=== PATIENT | female | born 1950 | race Caucasian/White ===

== ENCOUNTER 2022-12-18 11:50 | Emergency (ER) | payer OTHER ==
[2022-12-18] MEDS ORDERED: FLUORESCEIN SODIUM 1 MG/WRAP ONE (12:18)
[2022-12-18] MEDS ORDERED: TETRACAINE HCL 0.5% 4ML OPTH ONE (12:18)
--- NOTE | 2022-12-18 12:32 | EDPHYS ---
Physician Documentation [facility] Name: Lizet Vaz Age: 72 yrs Sex: Female : 1950 Arrival Date: 12/18/2022 Time: 11:54 Bed 12 Private MD: ED Physician Israel Alexander HPI: 12/18 13:29 This 72 yrs old Female presents to ER via Ambulatory with complaints of Eye Injury. kb 13:29 The patient is experiencing redness, The patient sustained a scratch, to the left eye, kb caused by debris. Onset: The symptoms/episode began/occurred yesterday. Duration: the symptoms are intermittent. Aggravated by nothing. Alleviated by nothing. Associated signs and symptoms: Pertinent positives: None. Patient wears glasses. Severity of symptoms: At their worst the symptoms were mild in the emergency department the symptoms are unchanged. The patient has not experienced similar symptoms in the past. The patient has not recently seen a physician. Historical: - Allergies: 12:09 PENICILLINS; aa5 12:09 Celebrex; aa5 12:09 Erythromycin; aa5 12:09 Clindamycin; aa5 - Home Meds: 12:10 None [Active]; aa5 - PMHx: 12:10 None; aa5 - Immunization history:: Adult Immunizations unknown. - Social history:: Smoking status: Patient denies any tobacco usage or history of. ROS: 13:29 Constitutional: Negative for fever, chills, and weight loss. kb 13:29 Eyes: Positive for redness, of the outer aspect of conjuctiva of left eye. 13:29 All other systems are negative. Exam: 13:29 Constitutional: This is a well developed, well nourished patient who is awake, alert, kb and in no acute distress. Head/Face: Normocephalic, atraumatic. Cardiovascular: Regular rate and rhythm with a normal S1 and S2. No gallops, murmurs, or rubs. No pulse deficits. Respiratory: Respirations even and unlabored. No increased work of breathing. Talking in full sentences Abdomen/GI: Soft, non-tender. No distention Skin: Warm, dry with normal turgor. Normal color. MS/ Extremity: Pulses equal, no cyanosis. Neurovascular intact. Full, normal range of motion. Neuro: Awake and alert, GCS 15, oriented to person, place, time, and situation. Moves all extremities. Normal gait. 13:29 Eyes: Pupils: equal, round, and reactive to light and accomodation, Extraocular movements: intact throughout, Conjunctiva: subconjunctival hemorrhage(s), seen in the left eye, at 7 o'clock, Corneas: are normal, abrasion, is not appreciated, foreign body, is not appreciated, a fluorescein strip employed to appreciate the findings. Vital Signs: 12:08 BP 164 / 83; Pulse 77; Resp 18 S; Temp 98.0(TE); Pulse Ox 99% on R/A; Weight 53.07 kg aa5 (R); Height 5 ft. 2 in. (157.48 cm) (R); 12:08 Body Mass Index 21.40 (53.07 kg, 157.48 cm) aa5 MDM: 12:17 Patient medically screened. kb 13:26 Differential diagnosis: Corneal abrasion of Foreign body in Subconjunctival hemorrhage. kb Data reviewed: vital signs, nurses notes. Counseling: I had a detailed discussion with the patient and/or guardian regarding: the historical points, exam findings, and any diagnostic results supporting the discharge/admit diagnosis, the need for outpatient follow up, a family practitioner, to return to the emergency department if symptoms worsen or persist or if there are any questions or concerns that arise at home. ED course: Patient is a 72-year-old female who was gardening yesterday and a leaf brushed her eyeball. Reports she continued what she was doing, did not have any pain or vision changes but after she was done she looked in the mirror and saw a redness to her left eye. Continues to deny pain, foreign body sensation or vision changes. On exam patient has a subconjunctival hemorrhage to the left eye at 7:00. Fluorescein strip used to do eye exam. No foreign body, abrasion noted. Patient educated to follow-up with ophthalmology. Verbal understanding received.. Administered Medications: No medications were administered Disposition Summary: 12/18/22 12:32 Discharge Ordered Location: Home kb Condition: Stable kb Diagnosis - Subconjunctival hemorrhage kb Followup: kb - With: Emergency Department - When: As needed - Reason: Worsening of condition Followup: kb - With: Private Physician - When: 2 - 3 days - Reason: Recheck today's complaints, Continuance of care, Re-evaluation by your physician Discharge Instructions: - Discharge Summary Sheet kb - Subconjunctival Hemorrhage kb Forms: - Medication Reconciliation Form kb - Thank You Letter kb - Antibiotic Education kb - Prescription Opioid Use kb Signatures: Fatemeh Solis, Jimena Flaherty, RN RN aa5
--- NOTE | 2022-12-18 12:32 | ER ---
Nurse's Notes [facility] Name: Lizet Vaz Age: 72 yrs Sex: Female : 1950 Arrival Date: 12/18/2022 Time: 11:54 Bed 12 Private MD: Diagnosis: Subconjunctival hemorrhage Presentation: 12/18 12:08 Chief complaint: Patient states: "I was planting an oleander plant and it brushed my aa5 left eye". Coronavirus screen: At this time, the client does not indicate any symptoms associated with coronavirus-19. Ebola Screen: Patient denies travel to an Ebola-affected area in the 21 days before illness onset. Initial Sepsis Screen: Does the patient meet any 2 criteria? No. Patient's initial sepsis screen is negative. Does the patient have a suspected source of infection? No. Patient's initial sepsis screen is negative. Risk Assessment: Do you want to hurt yourself or someone else? Patient reports no desire to harm self or others. Onset of symptoms was December 18, 2022. 12:08 Method Of Arrival: Ambulatory aa5 12:08 Acuity: AMRITA 4 aa5 Historical: - Allergies: 12:09 PENICILLINS; aa5 12:09 Celebrex; aa5 12:09 Erythromycin; aa5 12:09 Clindamycin; aa5 - Home Meds: 12:10 None [Active]; aa5 - PMHx: 12:10 None; aa5 - Immunization history:: Adult Immunizations unknown. - Social history:: Smoking status: Patient denies any tobacco usage or history of. Assessment: 12:40 Reassessment: Patient is alert, oriented x 3, equal unlabored respirations, skin aa5 warm/dry/pink. Vital Signs: 12:08 BP 164 / 83; Pulse 77; Resp 18 S; Temp 98.0(TE); Pulse Ox 99% on R/A; Weight 53.07 kg aa5 (R); Height 5 ft. 2 in. (157.48 cm) (R); 12:08 Body Mass Index 21.40 (53.07 kg, 157.48 cm) aa5 ED Course: 11:54 Patient arrived in ED. mr 12:08 Arm band placed on. aa5 12:09 Triage completed. aa5 12:14 Fatemeh Solis FNP-C is [facility]. kb 12:14 Israel Alexander MD is Attending Physician. kb 12:40 No provider procedures requiring assistance completed. Patient did not have IV access aa5 during this emergency room visit. Administered Medications: No medications were administered Outcome: 12:32 Discharge ordered by . kb 12:40 Discharged to home ambulatory. aa5 12:40 Condition: stable 12:40 Discharge instructions given to patient, significant other, Instructed on discharge instructions, follow up and referral plans. Demonstrated understanding of instructions, follow-up care. 12:43 Patient left the ED. aa5 Signatures: Fatemeh Solis FNP-C FNP-Ckb Rivera, Mary mr CostaJimena RN RN aa5
[2022-12-18 12:46] VITALS: BP 164/83; TEMP 98; O2SAT 99
== END 2022-12-18 12:43 | disposition home or self-care (01) ==
LOC: ER 11:50
DX: H11.32 Conjunctival hemorrhage, left eye (principal)
CPT/HCPCS: 99281

== ENCOUNTER 2023-05-17 09:10 | Inpatient (IN) | payer OTHER ==
[2023-05-17 10:03] LABS: Absolute Lymphocytes (CBC) 1.3 K/uL (0.7-4.9); Lymphocytes % 6.8 % (15.3-44.8); MCV 81.8 fL (80-100); MPV 6.9 fL (7.6-11.3); RBC Red Blood Cell Count 4.64 M/uL (3.86-4.86)
[2023-05-17 10:21] LABS: Bilirubin Total 0.4 mg/dL (0.2-1.0); Potassium 3.7 mEq/L (3.5-5.1); Protein, Total 7.6 g/dL (6.4-8.2)
--- NOTE | 2023-05-17 11:06 | RAD REPORT ---
EXAM DESCRIPTION: CTAbdomen Pelvis W Contrast - 05/17/2023 10:42 am CLINICAL HISTORY: ABD PAIN COMPARISON: No comparisons TECHNIQUE: CT of the abdomen and pelvis was performed. All CT scans are performed using dose optimization technique as appropriate and may include automated exposure control or mA/KV adjustment according to patient size. FINDINGS: Lower chest: Circumferential thickened distal esophagus. This suggests esophagitis. Liver: Several low-density liver lesions are noted. The largest is located near the love hepatis michelle sured 1.8 cm. A lesion in the inferior aspect of right hepatic lobe measures 13 millimeters. Other sm all are lesions are seen. Biliary: No biliary ductal dilatation. Stomach: No significant focal abnormality. Duodenum: No significant focal abnormality. Pancreas: No significant abnormality. Spleen: No significant abnormality. Adrenal: No suspicious lesions. Kidney/ureter: No hydronephrosis. No renal calculi. Retroperitoneum: No retroperitoneal adenopathy. Vascular: No aneurysm. Bowel: Pronounced inflammatory changes in the right lower quadrant. It is uncertain if this involves the ascending colon or is adjacent to the ascending colon. Low-density collection measuring 5.4 x 2.9 cm is noted. The base have a normal appendix is identified . The tip is not seen . Peritoneum: No ascites or free air. Bladder: Grossly unremarkable. Reproductive: No adnexal masses. Bones: No acute fracture. Other: n/a IMPRESSION: 1. Inflammatory changes and soft tissue in the right lower quadrant. It is uncertain if this could represent rupture appendicits with abscess versus a mass. A portion of a normal appendix i s identified and directed towards the inflammatory process. Recommend surgical consultation. 2. Liver lesions that could represent metastatic disease depending on the source of impression #1. He patic protocol MRI could assess.
[2023-05-17 11:18] LABS: Urine Bacteria <20 /HPF (<20); Urine Bilirubin NEGATIVE (Negative); Urine Blood Negative (Negative); Urine Clarity Clear (Clear); Urine Color Light-Yellow (Yellow); Urine Glucose NEGATIVE (Negative); Urine Protein NEGATIVE (Negative); Urine RBC <5 /HPF (None Seen); Urine Urobilinogen Normal (Normal); Urine pH 5.5 (5.0-7.0)
[2023-05-17] MEDS ORDERED: CIPROFLOXACIN 400mg IV 400 MG/200 ML BAG IV ONE (11:55)
[2023-05-17] MEDS ORDERED: METRONIDAZOLE 500mg IVPB 500 MG/100 ML BAG IV ONE (11:55)
--- NOTE | 2023-05-17 12:48 | EDPHYS ---
Physician Documentation [facility] Name: Lizet Vaz Age: 73 yrs Sex: Female : 1950 Arrival Date: 05/17/2023 Time: 09:10 Bed 15 Private MD: ED Physician Esau Samuels HPI: 05/17 09:30 This 73 yrs old Female presents to ER via Ambulatory with complaints of Abdominal pm1 Swelling, Abdominal Pain, Fever. 09:30 The patient presents with abdominal pain right lower quadrant. Onset: The pm1 symptoms/episode began/occurred 1.5 week(s) ago. The symptoms do not radiate. Associated signs and symptoms: Pertinent positives: fever, decreased appetite for 3 days at onset of abdominal pain, Pertinent negatives: constipation, diarrhea. The symptoms are described as constant, dull, 2-3/10 at the moment. Modifying factors: The symptoms are alleviated by nothing, the symptoms are aggravated by touching the area. Severity of pain: in the emergency department the pain has improved is a 3 / 10. The patient has not experienced similar symptoms in the past. The patient has not recently seen a physician, the patient's primary care provider is Dr. Cottrell. 73-year-old female presents to the ER with complaints of abdominal pain and fever that started about 1.5 weeks ago. Patient reports she had severe pain with decreased appetite for about 3 days, then her improved significantly to its current level 2 - 3/10, but she noticed that she has had continued fever every day along with some abdominal swelling. Historical: - Allergies: 09:42 Celebrex; ss 09:42 Clindamycin; ss 09:42 Erythromycin; ss 09:42 PENICILLINS; ss - Immunization history:: Client reports receiving the 2nd dose of the Covid vaccine. - Social history:: Smoking status: Patient denies any tobacco usage or history of. ROS: 09:30 Cardiovascular: Negative for chest pain, palpitations, and edema, Respiratory: Negative pm1 for shortness of breath, cough, wheezing, and pleuritic chest pain. 09:30 Back: Negative for injury and pain, : Negative for injury, bleeding, discharge, and swelling, MS/Extremity: Negative for injury and deformity, Skin: Negative for injury, rash, and discoloration, Neuro: Negative for headache, weakness, numbness, tingling, and seizure. 09:30 Constitutional: Positive for fever. 09:30 Abdomen/GI: Positive for abdominal pain, of the right lower quadrant, Negative for nausea, vomiting, diarrhea, constipation. 09:30 All other systems are negative. Exam: 09:30 Constitutional: This is a well developed, well nourished patient who is awake, alert, pm1 and in no acute distress. Head/Face: Normocephalic, atraumatic. 09:30 MS/ Extremity: Pulses equal, no cyanosis. Neurovascular intact. Full, normal range of motion. 09:30 Cardiovascular: Exam negative for acute changes, Rate: normal, Rhythm: regular, Pulses: no pulse deficits are appreciated, Heart sounds: normal, normal S1and S2. 09:30 Respiratory: Exam negative for acute changes, respiratory distress, shortness of breath, Breath sounds: are clear throughout. 09:30 Abdomen/GI: Inspection: abdomen appears normal, Bowel sounds: normal, in all quadrants, Palpation: soft, in all quadrants, moderate abdominal tenderness, in the right lower quadrant. 09:30 Back: pain, that is mild, of the right low back. 09:30 Neuro: Exam negative for acute changes, Orientation: is normal, Mentation: is normal, Motor: moves all fours. Vital Signs: 09:41 BP 117 / 72; Pulse 90; Resp 16; Temp 99(O); Pulse Ox 99% on R/A; Weight 53.07 kg; ss Height 5 ft. 2 in. ; Pain 3/10; 10:02 BP 126 / 78; Pulse 87; Resp 16; Pulse Ox 97% ; ko1 11:18 BP 128 / 72; Pulse 87; Resp 16; Pulse Ox 96% ; ko1 13:38 BP 130 / 69; Pulse 95; Resp 16; Pulse Ox 97% ; ko1 09:41 Body Mass Index 21.40 (53.07 kg, 157.48 cm) ss 09:41 Pain Scale: Adult ss MDM: 09:16 Patient medically screened. pm1 09:31 Differential diagnosis: appendicitis, cholecystitis, Cholelithiasis, non-specific abd pm1 pain, urinary tract infection. 11:38 Data reviewed: vital signs. pm1 11:38 Consideration of Admission/Observation Patient was admitted/placed on observation. pm1 11:38 Counseling: I had a detailed discussion with the patient and/or guardian regarding: the pm1 historical points, exam findings, and any diagnostic results supporting the discharge/admit diagnosis, lab results, radiology results, the need for further work-up and treatment in the hospital. 12:44 Management of patient was discussed with the following: Primary Care Provider: Dr trina Cottrell, he would like the patient to be admitted under the hospitalist service with consultation to Qian. 05/17 09:30 Order name: CBC with Diff; Complete Time: 11: pm05/17 09:30 Order name: CMP; Complete Time: 11: pm05/17 09:30 Order name: Lipase; Complete Time: 11: pm05/17 09:30 Order name: Urinalysis w/ reflexes; Complete Time: 11:22 pm05/17 09:30 Order name: CT Abd/Pelvis - IV Contrast Only; Complete Time: 11: pm05/17 09:30 Order name: IV Saline Lock; Complete Time: 09:45 pm05/17 09:30 Order name: Labs collected and sent; Complete Time: 09:46 pm1 Administered Medications: 11:48 Drug: metroNIDAZOLE IVPB 500 mg Volume: 100 ml; Route: IVPB; Rate: 200 ml/hr; Infused ko1 Over: 30 mins; Site: right antecubital; 12:32 Drug: Ciprofloxacin IVPB 400 mg Volume: 200 ml; Route: IVPB; Infused Over: 60 mins; ko1 Site: right antecubital; Disposition: 15:10 Co-signature as Attending Physician, Esau Samuels MD I reviewed the patient's care rn provided by the Advanced Practice Provider and agree with the diagnosis and treatment plan. Disposition Summary: 05/17/23 12:47 Hospitalization Ordered Hospitalization Status: Inpatient Admission pm1 Provider: José Juan pm1 [facility] ([facility]patient) pm1 Condition: Stable pm1 Problem: new pm1 Symptoms: have improved pm1 Bed/Room Type: Standard pm1 Room Assignment: pm1 Diagnosis - Unspecified acute appendicitis pm1 Forms: - Medication Reconciliation Form pm1 - SBAR form pm1 Signatures: Dispatcher [employer] Esau Bruce MD MD rn Blanchard, Shelby, RN RN ss Marinas, Patrick, ARVIND REPAIR SUPERVISOR pm1 Kumar, Estelle, RN RN ko1
--- NOTE | 2023-05-17 12:48 | ER ---
Nurse's Notes [facility] Name: Lizet Vaz Age: 73 yrs Sex: Female : 1950 Arrival Date: 05/17/2023 Time: 09:10 Bed 15 Private MD: Diagnosis: Unspecified acute appendicitis Presentation: 05/17 09:41 Chief complaint: Patient states: fever, abd pain and bloating that began 1.5 weeks ago. ss Denies N/V/D. Coronavirus screen: Client denies travel out of the [place] in the last 14 days. Ebola Screen: Patient denies exposure to infectious person. Patient denies travel to an Ebola-affected area in the 21 days before illness onset. Initial Sepsis Screen: Does the patient meet any 2 criteria? No. Patient's initial sepsis screen is negative. Does the patient have a suspected source of infection? No. Patient's initial sepsis screen is negative. Risk Assessment: Do you want to hurt yourself or someone else? Patient reports no desire to harm self or others. Onset of symptoms was May 06, 2023. 09:41 Method Of Arrival: Ambulatory 09:41 Acuity: AMRITA 3 ss Historical: - Allergies: 09:42 Celebrex; ss 09:42 Clindamycin; ss 09:42 Erythromycin; ss 09:42 PENICILLINS; ss - Immunization history:: Client reports receiving the 2nd dose of the Covid vaccine. - Social history:: Smoking status: Patient denies any tobacco usage or history of. Screenin:40 [facility] ED Fall Risk Assessment (Adult) History of falling in the last 3 months, ko1 including since admission No falls in past 3 months (0 pts). Abuse screen: Denies threats or abuse. Denies injuries from another. Nutritional screening: No deficits noted. Tuberculosis screening: No symptoms or risk factors identified. Assessment: 09:40 General: Appears in no apparent distress. comfortable, Behavior is calm, cooperative, ko1 appropriate for age. Pain: Complains of pain in abdomen. Neuro: No deficits noted. Cardiovascular: No deficits noted. Respiratory: No deficits noted. GI: Bowel sounds present X 4 quads. Abd is soft X 4 quads. : No deficits noted. EENT: No deficits noted. Derm: No deficits noted. Musculoskeletal: No deficits noted. Vital Signs: 09:41 BP 117 / 72; Pulse 90; Resp 16; Temp 99(O); Pulse Ox 99% on R/A; Weight 53.07 kg; ss Height 5 ft. 2 in. ; Pain 3/10; 10:02 BP 126 / 78; Pulse 87; Resp 16; Pulse Ox 97% ; ko1 11:18 BP 128 / 72; Pulse 87; Resp 16; Pulse Ox 96% ; ko1 13:38 BP 130 / 69; Pulse 95; Resp 16; Pulse Ox 97% ; ko1 09:41 Body Mass Index 21.40 (53.07 kg, 157.48 cm) ss 09:41 Pain Scale: Adult ss ED Course: 09:13 Patient arrived in ED. mg5 09:16 Hever Child NP is PHCP. pm1 09:16 Esau Samuels MD is Attending Physician. pm1 09:35 Estelle Heath RN is Primary Nurse. ko1 09:42 Triage completed. ss 09:42 Arm band placed on right wrist. ss 09:45 Patient has correct armband on for positive identification. Allergy band placed. Placed ko1 in gown. Bed in low position. Call light in reach. Side rails up X 1. 09:45 Provided Education on: labs/tests. Pulse ox on. NIBP on. Door closed. Warm blanket ko1 given. 09:45 Inserted saline lock: 20 gauge in right antecubital area, using aseptic technique. ko1 Blood collected. 09:49 CBC with Diff Sent. ko1 09:49 CMP Sent. ko1 09:49 Lipase Sent. ko1 10:43 CT Abd/Pelvis - IV Contrast Only In Process Unspecified. EDMS 10:53 Urinalysis w/ reflexes Sent. ko1 12:47 José Juan is Hospitalizing Provider. pm1 13:38 No provider procedures requiring assistance completed. Patient admitted, IV remains in ko1 place. Administered Medications: 11:48 Drug: metroNIDAZOLE IVPB 500 mg Volume: 100 ml; Route: IVPB; Rate: 200 ml/hr; Infused ko1 Over: 30 mins; Site: right antecubital; 12:32 Drug: Ciprofloxacin IVPB 400 mg Volume: 200 ml; Route: IVPB; Infused Over: 60 mins; ko1 Site: right antecubital; Medication: 13:38 VIS not applicable for this client. ko1 Outcome: 12:47 Decision to Hospitalize by Provider. pm1 13:38 Admitted to OR accompanied by nurse, via wheelchair, with chart. ko1 13:38 Condition: good 13:38 Instructed on the need for admit, Demonstrated understanding of instructions. 13:43 Patient left the ED. ko1 Signatures: Dispatcher [employer] EDMS Lelia Paniagua RN RN ss Hever Child, ARVIND FOREIGN EXCHANGE DEALER pm1 Estelle Heath RN RN ko1 Lorraine Espino mg5
[2023-05-17] MEDS ORDERED: NA CIT/CITRIC AC 30 ML ORAL UDC ONE (13:56)
[2023-05-17] MEDS ORDERED: Ringers Lactate 1,000 ML IV ONE ×2 (13:57→16:40)
[2023-05-17] MEDS ORDERED: propofoL 200 MG/20 ML VIAL IV ONE (14:11)
[2023-05-17] MEDS ORDERED: FENTANYL CITR 100 MCG/2 ML ONE (14:11)
[2023-05-17] MEDS ORDERED: LIDOCAINE 2% MPF 5 ML VIAL ONE (14:12)
[2023-05-17] MEDS ORDERED: ROCURONIUM 50 MG/5 ML VIAL IV ONE ×2 (14:12→15:00)
[2023-05-17] MEDS ORDERED: MIDAZOLAM HCL 2 MG/2 ML INJ ONE (14:12)
[2023-05-17] MEDS ORDERED: ONDANSETRON 4 MG/2 ML VIAL ONE (14:13)
[2023-05-17] MEDS ORDERED: SUCCINYLCHOLINE 20 MG/ML (10 ML) IV ONE (14:15)
[2023-05-17] MEDS ORDERED: ACETAMINOPHEN 650MG/RECT SUPP PR PRN (14:20)
--- NOTE | 2023-05-17 14:25 | P.HP ---
Certification for Inpatient Patient admitted to: Observation With expected LOS: <2 Midnights Patient will require the following post-hospital care: None Practitioner: I am a practitioner with admitting privileges, knowledge of patient current condition, hospital course, and medical plan of care. Services: Services provided to patient in accordance with Admission requirements found in Title 42 Section 412.3 of the Code of Federal Regulations Patient History Date of Service: 05/17/23 History of Present Illness: Patient is a 73-year-old female with no known past medical history who presents with complaint of right lower quadrant pain onset 1 and half weeks ago. Patient rated pain as 4/10. Patient described pain as dull in quality. Patient reported associated signs and symptoms of fever, headache and chills. Patient denies any other signs and symptoms. Symptoms are aggravated or relieved by nothing. Patient decided to present to the hospital due to worsening symptoms. Allergies celecoxib [From Celebrex] Allergy (Verified 05/17/23 13:36) Hives/Rash clindamycin Allergy (Verified 05/17/23 13:36) Hives/Rash erythromycin base Allergy (Verified 05/17/23 13:37) Hives/Rash Penicillins Allergy (Verified 05/17/23 13:37) Hives/Rash - Past Medical/Surgical History Past Medical History: Patient denies medical history Past Surgical History: Patient denies surgical history - Family History Mother -: Diabetes Father -: Other (see notes) (Alzheimer disease.) - Social History Smoking Status: Never smoker Alcohol use: No CD- Drugs: No Caffeine use: Yes Place of Residence: Home Review of Systems General: Fever, Chills Eyes: Unremarkable ENT: Unremarkable Respiratory: Unremarkable Cardiovascular: Unremarkable Gastrointestinal: Abdominal Pain Genitourinary: Unremarkable Musculoskeletal: Unremarkable Integumentary: Unremarkable Neurological: Other (Headache.) Lymphatics: Unremarkable Physical Examination - Vital Signs Temperature: 99 F Blood Pressure: 130/69 Pulse: 95 Respirations: 16 - Physical Exam General: Alert, In no apparent distress, Oriented x3, Cooperative HEENT: Atraumatic, PERRLA, Mucous membr. moist/pink, EOMI, Sclerae nonicteric Neck: Supple, 2+ carotid pulse no bruit, No LAD, Without JVD or thyroid abnormality Respiratory: Clear to auscultation bilaterally, Normal air movement Cardiovascular: Regular rate/rhythm, Normal S1 S2 Capillary refill: <2 Seconds Gastrointestinal: Normal bowel sounds, Tenderness Musculoskeletal: No clubbing, No swelling, No tenderness Integumentary: No rashes Neurological: Normal gait, Normal speech, Normal strength at 5/5 x4 extr, Normal tone, Normal affect Lymphatics: No axilla or inguinal lymphadenopathy - Studies Laboratory Data (last 24 hrs) 05/17/23 09:45: Sodium 134 L, Potassium 3.7, BUN 13, Creatinine 0.95, Glucose 132 H, Total Bilirubin 0.4, AST 28, ALT 44, Alkaline Phosphatase 106, Lipase 32 05/17/23 09:45: WBC 19.90 H, Hgb 12.3, Hct 38.0, Plt Count 412 H Assessment and Plan - Plan --Acute appendicitis. CT imaging indicates findings suspicious for rupture appendicitis with abscess versus a mass. Patient placed on antibiotics. Surgeon consulted. Continue IV hydration. Will await further recommendation from surgeon. --Acute pain. We will manage pain with current pain medication -- Leukocytosis. Likely secondary to appendicitis. Continue antibiotics. We will continue to monitor WBC levels. --CKD 2. Baseline functions unknown. We will continue to monitor renal functions. --UTI POA. UA positive for leukocyte esterase. Patient symptomatic. Continue antibiotics. Urine cultures Pending --Headache. Tylenol as needed. -- DVT prophylaxis with SCDs. Discharge Plan: Home Plan to discharge in: 48 Hours - Advance Directives Does patient have a Living Will: No Does patient have a Durable POA for Healthcare: No - Code Status/Comfort Care Code Status Assessed: Yes Physician Review: Patient Assessed, Agree with Above Assessment and Plan Critical Care: No
--- NOTE | 2023-05-17 14:30 | P.HP ---
Date of Service: 05/17/23 PC: This 73-year-old female presented to emergency room with severe abdominal pain for diagnosis and treatment. HPC: About 10 days ago patient began to have abdominal pain, located in the right side of her abdomen. Over about 72 hours the pain got better. Never entirely went away but has intensified again over the last few days. Now she can barely stand it. States she has been having regular bowel movements, not much of an appetite. PSHx: Never had surgery before PMHx: Negative Social Hx: Allergic to numerous drugs, clindamycin, erythromycin base, penicillin Sys R: No cough, wheeze, shortness of breath. No chest pain or palpitations. Denies any urinary problems. O/E: Awake alert stable at the moment HEENT: Within normal limits Chest: Air entry equal bilaterally Abd: Tender with guarding particular in the right side of the abdomen [place]: Intact Data: Elevated white cell count, CT scan supports clinical diagnosis of appendicitis with probable abscess Impression: Ruptured appendix with abscess and peritonitis Plan: I will taken the operating room for a open appendectomy. This patient's serum albumin has already dropped, she is frail, and does not look well at the moment. I do not feel IV antibiotic therapy is a viable option for her in view of the size of this abscess. The risks of this procedure have been discussed with the patient. The possibility of bleeding, infection, injury to bowel and blood vessels was explained. She understands and wants to proceed.
[2023-05-17] MEDS ORDERED: dexAMETHasone 4 MG/ML VIAL ONE (15:01)
[2023-05-17] MEDS ORDERED: NEOSTIGMINE 1 MG/ML -10 ML VIAL ONE (16:04)
[2023-05-17] MEDS ORDERED: GLYCOPYRROLATE 0.2 MG/ML SYR ONE ×2 (16:04)
[2023-05-17] MEDS: HYDROMORPHONE HCL 2 MG/ML inj ONE ×4 (16:38→16:54)
[2023-05-17] MEDS: MIDAZOLAM HCL 2 MG/2 ML INJ ONE ×2 (17:05→17:11)
[2023-05-17] MEDS: FENTANYL CITR 100 MCG/2 ML ONE ×2 (17:22→17:31)
--- NOTE | 2023-05-17 17:28 | P.OP ---
Preoperative diagnosis: Acute abdomen with ruptured appendix and abscess Postoperative diagnosis: The same Primary procedure: Exploratory laparotomy Secondary procedure: Mobilization of the hepatic flexure Other procedure(s): Appendectomy Anesthesia: General Estimated blood loss: Less than 20 cc Specimen: 1 ruptured appendix in pieces Operative Technique: The patient was brought to the operating room placed supine on the table. After the induction of adequate general endotracheal anesthesia, there the abdomen was prepped with a Betadine solution after the insertion of a Eisenberg catheter, and she was draped in the usual aseptic manner. A generous midline incision was made. This brought down through the skin and subcutaneous tissue. The fascia was divided in the midline in the upper abdomen. The peritoneum was identified, grasped between 2 hemostats, sharply incised allowing access to the peritoneal cavity. A finger was placed into the peritoneal cavity. By elevating the muscles off of the intra-abdominal contents we will open this for the full length of our incision. At this point there was no free fluid noted. There was no foul order coming from the abdomen. With the surgeon on the left side of the patient we were able to retract and demonstrate the right side of the abdomen. And was placed into the peritoneal cavity. There was noted to be an intense inflammatory process up around the hepatic flexure. This extended posteriorly along the mesentery of this portion of the bowel. There appeared to be quite a lot of edema in the retroperitoneal space. An opening was made along the white line of [place]. We were gradually able to reflect the right colon medially. In this area there was noted to be a lot of inflammatory tissue. This showed a area of intense inflammation, but no jericho pus was noted. The colon was mobilized down towards the cecum. We could see the appendix which was curling up adherent to the posterior portion of the cecum itself. About the mid portion of the colon we found where the tip was from the body of the appendix. The body of the appendix was noted to be quite thin in size, but the distal portion was blown apart. The appendix was mobilized off of the cecum. We traced this down to the junction of the appendix with the cecum. The base of the appendix was crushed with a hemostat. A stick tie of chromic was used to ligate the base of the appendix. A free tie of the same was also used. The appendix was then amputated and handed off the field. A pursestring of silk was used to invert the appendiceal stump. Attention was now turned back up towards the hepatic flexure. There appeared to be quite a lot of thickened tissue in this and there was a question of whether or not there was a intraluminal mass. We were now able to mobilize the hepatic flexure and reflected again medially taking care not to injure the duodenum. This having been done, we could see that the actual colon was intact. It had been tacked down quite severely at the hepatic flexure with some adhesions. Once these were released we had a good sweep. We did not feel anything intra-abdominal. Posteriorly the Gerota's fascia was identified and it was quite inflamed with inflammation of the fatty tissue in that area. However once again no jericho pus was noted. At this point a Will-Bauman drain was placed into the right paracolic gutter. This was brought out through a separate stab wound incision in the right lower quadrant. The bowel was returned to its anatomical position. Attention was now turned towards the small bowel. The small bowel was run from the ligament of Treitz down to the ileocecal valve. All this was intact, there was no evidence of any adhesions, scar tissue or any other gross abnormalities. The right colon was identified it was found to be in good position we traced it up to the hepatic flexure which now lay in a more anatomical position. There was very little bleeding throughout this whole procedure, we are able to easily control it using electrocautery. Having once again confirmed the position of our drain, the midline incision was closed with a running suture of nylon. The subcutaneous tissue was inspected to ensure adequate hemostasis. The skin was now loosely approximated using avis. Iodoform gauze was placed between her avis. A sterile dressing was then applied. At the end of the procedure she was in a stable condition was sent to the recovery room. Needle sponge instrument count were correct. Complications: None Drain(s): JOSE LUIS drain Transferred to: ICU Condition: Good
[2023-05-17] MEDS: METRONIDAZOLE 500mg IVPB 500 MG/100 ML BAG IV SCH (18:28)
[2023-05-17] MEDS: NA CHLORIDE 0.9% 1,000 ML IV SCH (18:28)
[2023-05-17 18:40] LABS: Magnesium 2.4 mg/dL (1.6-2.4); Phosphorus 3.2 mg/dL (2.5-4.9); Thyroid Stimulating Hormone 3.08 uIU/mL (0.358-3.740)
[2023-05-17] MEDS: MORPHINE 4 MG/ML SYR IV PRN (20:04)
[2023-05-17] MEDS: Ciprofloxacin 200mg IV 200 MG/100 ML IV.SOLN. IV SCH (20:04)
[2023-05-18] MEDS: MORPHINE 4 MG/ML SYR IV PRN ×5 (00:14→20:31)
[2023-05-18] MEDS: METRONIDAZOLE 500mg IVPB 500 MG/100 ML BAG IV SCH ×3 (00:15→17:05)
[2023-05-18 05:42] LABS: Magnesium 2.4 mg/dL (1.6-2.4); Phosphorus 3.8 mg/dL (2.5-4.9); Potassium 5.2 mEq/L (3.5-5.1)
[2023-05-18 05:52] LABS: Absolute Lymphocytes (CBC) 0.9 K/uL (0.7-4.9); Hematocrit 35.5 % (36.0-45.0); Lymphocytes % 3.3 % (15.3-44.8); MCV 82.2 fL (80-100); MPV 7.2 fL (7.6-11.3); RBC Red Blood Cell Count 4.32 M/uL (3.86-4.86)
[2023-05-18] MEDS: NA CHLORIDE 0.9% 1,000 ML IV SCH (06:20)
[2023-05-18 06:40] VITALS: BMI 23.8
[2023-05-18] MEDS: Ciprofloxacin 200mg IV 200 MG/100 ML IV.SOLN. IV SCH ×2 (08:09→20:31)
[2023-05-18 08:44] LABS: Blood Morphology Comment NOT SEEN (NOT SEEN); Platelet Estimate ADEQ
--- NOTE | 2023-05-18 12:58 | P.PN ---
Subjective Date of Service: 05/18/23 Patient has no new complain. She has tolerated diet. Patient is also ambulatory. No recorded fever. Physical Examination - Vital Signs Temperature: 98.7 F Blood Pressure: 125/69 Pulse: 83 Respirations: 31 Pulse Ox (%): 95 Assessment And Plan - Plan Physical Exam General: Alert, In no apparent distress, Oriented x3, Cooperative Respiratory: Clear to auscultation bilaterally, Normal air movement Cardiovascular: Regular rate/rhythm, Normal S1 S2 Gastrointestinal: Normal bowel sounds. Musculoskeletal: No clubbing, No swelling, No tenderness Integumentary: No rashes Neurological: No focal motor deficit. 38.0, Plt Count 412 H Diagnosis Acute appendicitis-ruptured Sepsis Plan: Status post lap appendectomy. Patient noted to have a ruptured appendix. She is currently tolerating diet. Continue aggressive antibiotics Pain management as needed Activity as tolerated. Follow cultures. Monitor CBC to follow leukocytosis. Transferred to the medical floor.
[2023-05-18] MEDS: ONDANSETRON 4 MG/2 ML VIAL IV PRN (20:36)
[2023-05-19] MEDS: METRONIDAZOLE 500mg IVPB 500 MG/100 ML BAG IV SCH ×3 (00:28→16:19)
[2023-05-19] MEDS: ONDANSETRON 4 MG/2 ML VIAL IV PRN ×2 (02:50→09:30)
[2023-05-19 03:18] LABS: Absolute Lymphocytes (CBC) 1.1 K/uL (0.7-4.9); Hematocrit 33.7 % (36.0-45.0); Lymphocytes % 5.2 % (15.3-44.8); MCV 81.4 fL (80-100); MPV 7.2 fL (7.6-11.3); RBC Red Blood Cell Count 4.14 M/uL (3.86-4.86)
[2023-05-19 03:39] LABS: Potassium 3.9 mEq/L (3.5-5.1)
[2023-05-19] MEDS ORDERED: POTASSIUM CL SA 10 MEQ TAB PO ONE (09:00)
[2023-05-19] MEDS: Ciprofloxacin 200mg IV 200 MG/100 ML IV.SOLN. IV SCH ×2 (09:25→20:50)
--- NOTE | 2023-05-19 14:25 | P.PN ---
Date of Service: 05/19/23 S: Patient states she is feeling very well today, ask about when she can go home. No bowel movements yet today. Says she is voiding well. Not much of an appetite, does not care for the food. O: Abdomen is soft, minimal out through the JOSE LUIS drain. Drainage is just serosanguineous at this point. A: Patient is surgically stable, looks well, ambulating, good effort on incentive spirometry. White cell count is coming down, but still elevated at 18. P: Continue current therapy, encourage p.o. intake, I will most likely DC the drain tomorrow and pending will discharge patient home. She is comfortable with this plan.
--- NOTE | 2023-05-19 14:47 | P.PN ---
Date of Service: 05/19/23
--- NOTE | 2023-05-19 15:32 | P.PN ---
Subjective Date of Service: 05/19/23 Patient has no new complain. She has tolerated diet. Patient is also ambulatory. No fever. Physical Examination - Vital Signs Temperature: 99.0 F Blood Pressure: 128/73 Pulse: 86 Respirations: 16 Pulse Ox (%): 97 Assessment And Plan - Plan Physical Exam General: Alert, In no apparent distress, Oriented x3, Cooperative Respiratory: Clear to auscultation bilaterally, Normal air movement Cardiovascular: Regular rate/rhythm, Normal S1 S2 Gastrointestinal: Normal bowel sounds. Musculoskeletal: No clubbing, No swelling, No tenderness Integumentary: No rashes Neurological: No focal motor deficit. 38.0, Plt Count 412 H Diagnosis Acute appendicitis-ruptured Sepsis Plan: Status post lap appendectomy. Patient noted to have a ruptured appendix. She is currently tolerating diet. Continue antibiotics Pain management as needed. General surgery is following. JOSE LUIS drain management per surgery. Activity as tolerated. Follow cultures. Monitor CBC to follow leukocytosis.
[2023-05-20] MEDS: METRONIDAZOLE 500mg IVPB 500 MG/100 ML BAG IV SCH ×3 (01:13→15:57)
[2023-05-20 03:12] LABS: Potassium 3.8 mEq/L (3.5-5.1)
[2023-05-20] MEDS ORDERED: POTASSIUM CL SA 10 MEQ TAB PO ONE (09:00)
[2023-05-20] MEDS: Ciprofloxacin 200mg IV 200 MG/100 ML IV.SOLN. IV SCH (09:36)
[2023-05-20 10:02] LABS: Absolute Lymphocytes (CBC) 1.1 K/uL (0.7-4.9); Hematocrit 38.5 % (36.0-45.0); Lymphocytes % 5.3 % (15.3-44.8); MCV 81.3 fL (80-100); MPV 6.5 fL (7.6-11.3); RBC Red Blood Cell Count 4.74 M/uL (3.86-4.86)
[2023-05-20] MEDS ORDERED: MORPHINE 2 MG/ML SYR IV PRN (14:56)
[2023-05-20] MEDS ORDERED: OXYMETAZOLINE HCL 0.05% 15ML NAS PRN (14:57)
[2023-05-20] MEDS: MINERAL OIL 30 ML UCUP PO PRN (15:05)
--- NOTE | 2023-05-20 16:26 | P.PN ---
Subjective Date of Service: 05/20/23 Patient is complaining of postnasal drip. She has tolerated diet. Patient is also ambulatory. Physical Examination - Vital Signs Temperature: 99.6 F Blood Pressure: 136/82 Pulse: 89 Respirations: 16 Pulse Ox (%): 97 - Studies Laboratory Data (last 24 hrs) WBC 19.90 thou/uL (4.3-10.9) H 05/17/23 09:45 Hgb 12.3 g/dL (12.0-15.0) 05/17/23 09:45 Hct 38.0 % (36.0-45.0) 05/17/23 09:45 Plt Count 412 thou/uL (152-406) H 05/17/23 09:45 Sodium 134 mEq/L (136-145) L 05/17/23 09:45 Potassium 3.7 mEq/L (3.5-5.1) 05/17/23 09:45 BUN 13 mg/dL (7-18) 05/17/23 09:45 Creatinine 0.95 mg/dL (0.55-1.02) 05/17/23 09:45 Glucose 132 mg/dL (74-106) H 05/17/23 09:45 Total Bilirubin 0.4 mg/dL (0.2-1.0) 05/17/23 09:45 AST 28 U/L (15-37) 05/17/23 09:45 ALT 44 U/L (13-56) 05/17/23 09:45 Alkaline Phosphatase 106 U/L (45-117) 05/17/23 09:45 Lipase 32 U/L (13-75) 05/17/23 09:45 Assessment And Plan - Plan Physical Exam General: Alert, In no apparent distress, Oriented x3, Cooperative Respiratory: Clear to auscultation bilaterally, Normal air movement Cardiovascular: Regular rate/rhythm, Normal S1 S2 Gastrointestinal: Normal bowel sounds. Musculoskeletal: No clubbing, No swelling, No tenderness Integumentary: No rashes Neurological: No focal motor deficit. Diagnosis Acute appendicitis-ruptured Sepsis Plan: Status post lap appendectomy for ruptured appendix. She is tolerating diet. White cell count is trending down but still significantly elevated. Continue antibiotics Pain management as needed. General surgery is following. JOSE LUIS drain management per surgery. Activity as tolerated. Wound culture: Alpha Streptococcus. Monitor CBC to follow leukocytosis.
[2023-05-20] MEDS: Meropenem 500 MG in NA CHLORIDE 0.9% 100 ML IV SCH (18:42)
[2023-05-20] MEDS: FLUTICASONE 50MCG NASAL SPRAY NAS SCH (20:21)
[2023-05-21] MEDS: METRONIDAZOLE 500mg IVPB 500 MG/100 ML BAG IV SCH ×3 (00:23→15:59)
[2023-05-21] MEDS: Meropenem 500 MG in NA CHLORIDE 0.9% 100 ML IV SCH ×3 (00:26→15:59)
[2023-05-21 06:03] LABS: Absolute Lymphocytes (CBC) 1.3 K/uL (0.7-4.9); Hematocrit 34.3 % (36.0-45.0); Lymphocytes % 7.5 % (15.3-44.8); MCV 81.3 fL (80-100); MPV 6.5 fL (7.6-11.3); RBC Red Blood Cell Count 4.22 M/uL (3.86-4.86)
[2023-05-21 06:17] LABS: Potassium 4.2 mEq/L (3.5-5.1)
[2023-05-21] MEDS: FLUTICASONE 50MCG NASAL SPRAY NAS SCH ×2 (08:44→20:23)
[2023-05-21] MEDS: MINERAL OIL 30 ML UCUP PO PRN (08:44)
[2023-05-21 09:40] LABS: Blood Morphology Comment NOT SEEN (NOT SEEN); Platelet Estimate INCR
[2023-05-21] MEDS: CODEINE 30MG/APAP 300MG TAB PO PRN (12:52)
--- NOTE | 2023-05-21 13:01 | P.PN ---
Subjective Date of Service: 05/21/23 Patient states she feels much better today. She reported improvement in her postnasal drip and she is coughing less. She has tolerated diet. Patient is also ambulatory. Physical Examination - Vital Signs Temperature: 99.0 F Blood Pressure: 134/65 Pulse: 76 Respirations: 18 Pulse Ox (%): 98 Assessment And Plan - Plan Physical Exam General: Alert, In no apparent distress, Oriented x3, Cooperative Respiratory: Clear to auscultation bilaterally, Normal air movement Cardiovascular: Regular rate/rhythm, Normal S1 S2 Gastrointestinal: Normal bowel sounds. Musculoskeletal: No clubbing, No swelling, No tenderness Integumentary: No rashes Neurological: No focal motor deficit. Diagnosis Acute appendicitis-ruptured Sepsis Plan: Status post lap appendectomy for ruptured appendix. She is tolerating diet. White cell count is trending down-better response with IV meropenem. Continue current antibiotics Pain management as needed. General surgery is following. Dr. Laughlin commend monitoring her for a couple of more days. JOSE LUIS drain is still in place. Management per surgery. Activity as tolerated. Wound culture: Alpha Streptococcus. Monitor CBC to follow leukocytosis.
[2023-05-21] MEDS ORDERED: NA CHLORIDE 0.9% 100 ML ONE (16:02)
[2023-05-22] MEDS: METRONIDAZOLE 500mg IVPB 500 MG/100 ML BAG IV SCH ×3 (00:55→17:00)
[2023-05-22] MEDS: Meropenem 500 MG in NA CHLORIDE 0.9% 100 ML IV SCH ×2 (01:41→08:16)
[2023-05-22] MEDS: CODEINE 30MG/APAP 300MG TAB PO PRN (03:49)
[2023-05-22 06:24] LABS: Absolute Lymphocytes (CBC) 1.7 K/uL (0.7-4.9); Hematocrit 32.9 % (36.0-45.0); Lymphocytes % 10.5 % (15.3-44.8); MCV 81.5 fL (80-100); MPV 6.5 fL (7.6-11.3); RBC Red Blood Cell Count 4.04 M/uL (3.86-4.86)
[2023-05-22 06:37] LABS: Potassium 4.2 mEq/L (3.5-5.1)
[2023-05-22] MEDS: FLUTICASONE 50MCG NASAL SPRAY NAS SCH ×2 (08:17→22:14)
[2023-05-22 08:53] LABS: Platelet Estimate INCR
[2023-05-22 08:54] LABS: Blood Morphology Comment NOT SEEN (NOT SEEN); Platelets, Giant FEW
--- NOTE | 2023-05-22 11:53 | P.PN ---
Subjective Date of Service: 05/22/23 Patient has no new complaint today She is tolerated diet. Patient is ambulatory. Physical Examination - Vital Signs Temperature: 98.0 F Blood Pressure: 134/73 Pulse: 75 Respirations: 16 Pulse Ox (%): 97 Assessment And Plan - Plan Physical Exam General: Alert, In no apparent distress, Oriented x3, Cooperative Respiratory: Clear to auscultation bilaterally, Normal air movement Cardiovascular: Regular rate/rhythm, Normal S1 S2 Gastrointestinal: Normal bowel sounds. Musculoskeletal: No clubbing, No swelling, No tenderness Integumentary: No rashes Neurological: No focal motor deficit. Diagnosis Acute appendicitis-ruptured Sepsis Plan: Status post lap appendectomy for ruptured appendix. She is tolerating diet. White cell count continue to trend down-better response with IV meropenem. Continue current antibiotics. Pharmacy is following and dosing antibiotics. Pain management as needed. General surgery is following. Dr. Laughlin to follow. JOSE LUIS drain is still in place. Fluid output has decreased. Management per surgery. Activity as tolerated. Wound culture: Alpha Streptococcus. Monitor CBC to follow leukocytosis.
[2023-05-22] MEDS: Meropenem 1,000 MG in NA CHLORIDE 0.9% 100 ML IV SCH (17:01)
[2023-05-23] MEDS: METRONIDAZOLE 500mg IVPB 500 MG/100 ML BAG IV SCH ×3 (00:41→18:12)
[2023-05-23] MEDS: Meropenem 1,000 MG in NA CHLORIDE 0.9% 100 ML IV SCH ×3 (01:26→18:12)
[2023-05-23 06:24] LABS: Absolute Lymphocytes (CBC) 1.8 K/uL (0.7-4.9); Hematocrit 35.4 % (36.0-45.0); Lymphocytes % 11.1 % (15.3-44.8); MCV 81.5 fL (80-100); MPV 6.5 fL (7.6-11.3); RBC Red Blood Cell Count 4.35 M/uL (3.86-4.86)
[2023-05-23] MEDS: FLUTICASONE 50MCG NASAL SPRAY NAS SCH ×2 (09:26→21:00)
--- NOTE | 2023-05-23 14:21 | RAD REPORT ---
EXAM DESCRIPTION: CTAbdomen Pelvis W Contrast - 05/23/2023 1:46 pm CLINICAL HISTORY: Ruptured appendix s/p appendectomy COMPARISON: Abdomen Pelvis W Contrast dated 05/17/2023 TECHNIQUE: CT of the abdomen and pelvis was performed. All CT scans are performed using dose optimization technique as appropriate and may include automated exposure control or mA/KV adjustment according to patient size. FINDINGS: Lower chest: No acute abnormality. Small hiatal hernia Liver: Several low-density liver lesions which are again identified. These are probably benign but sh ould be confirmed with hepatic protocol MRI. Biliary: No biliary ductal dilatation. Stomach: No significant focal abnormality. Duodenum: No significant focal abnormality. Pancreas: No significant abnormality. Spleen: No significant abnormality. Adrenal: No suspicious lesions. Kidney/ureter: No hydronephrosis. No renal calculi. Too small to characterize and/or benign appearing renal lesions are noted. Retroperitoneum: No retroperitoneal adenopathy. Vascular: No aneurysm. Bowel: No bowel obstruction. Interval appendectomy.. Laparotomy defect. Peritoneum: Surgical drain terminates in the right paracolic gutter. Enhancing fluid collection media l to the ascending colon and medial to the drain measures 6.2 x 4.1 cm in maximal dimension. Bladder: Gas present within the bladder which is presumably related to instrumentation. . Reproductive: No adnexal masses. Hysterectomy. Bones: No acute fracture. Multilevel degenerative changes are present in the spine. Other: n/a IMPRESSION: Interval appendectomy with surgical drain in place. Enhancing fluid collection in the il eocolic mesentery that is of indeterminate sterility and could represent an abscess. The drain is not contiguous with the fluid collection. No bowel obstruction.
--- NOTE | 2023-05-23 14:57 | P.PN ---
Subjective Date of Service: 05/23/23 Patient has no new complaint. Patient is ambulatory. No issues. She states that she feels at baseline. Physical Examination - Vital Signs Temperature: 98.9 F Blood Pressure: 137/82 Pulse: 89 Respirations: 16 Pulse Ox (%): 98 Assessment And Plan - Plan Physical Exam General: Alert, NAD. Respiratory: Clear to auscultation bilaterally, Normal air movement Cardiovascular: Regular rate/rhythm, Normal S1 S2 Gastrointestinal: Normal bowel sounds. Nondistended. Musculoskeletal: No clubbing, No swelling, No tenderness Integumentary: No rashes Neurological: No focal motor deficit. Diagnosis Acute appendicitis-ruptured Sepsis Plan: Status post lap appendectomy for ruptured appendix. She is tolerating diet. White cell count trended down better after antibiotics was changed to [place] [address] but generally slow response. Repeat CT abdomen and pelvis shows fluid collection in the ileocolic mesentery. Patient looks clinically better. She has been reevaluated by surgery Dr. Laughlin recommended to continue antibiotics and monitoring. The fluid collection is not contagious with a JOSE LUIS drain, so Dr. Laughlin is planning to remove the drain today. Serial abdominal examination. Continue current antibiotics. Pharmacy is following and dosing antibiotics. Pain management as needed. General surgery is following. Dr. Laughlin to follow. Activity as tolerated. Patient is tolerating diet. Wound culture: Alpha Streptococcus. Monitor CBC to follow leukocytosis.
--- NOTE | 2023-05-23 15:14 | P.PN ---
Date of Service: 05/23/23 S: Patient up walking in her room, in good spirits, no specific complaints. States she just does not have much of an appetite. Just back from the CT scan. O: Abdomen is soft, nontender. Surgical incision is clean. [Iodoform gauze has been removed] JOSE LUIS drain has some serosanguineous fluid in it. No evidence of any purulence in it. Has bowel sounds. Great effort on incentive spirometry, 2200. No longer requiring pain medication CT scan was ordered today. I reviewed with the radiologist. They discussed a fluid collection seen in the area where we operated. The JOSE LUIS drain is not anywhere near it. They cannot say for sure that it is an abscess. I think that is just the area that we debrided and removed specimen from that has fluid in it. A: Patient is surgically stable, clinically looks much improved since her admission and postoperative course. She is in good spirits P: Will-Bauman drain is no longer functioning and is not in the area that I wanted drained at the time of surgery. It will be removed. Patient is up ambulating. I have asked her doing creaser p.o. intake. We will reassess in the a.m. Anticipate probable discharge home in the next day or so on oral antibiotics.
[2023-05-24] MEDS: Meropenem 1,000 MG in NA CHLORIDE 0.9% 100 ML IV SCH ×2 (01:27→09:03)
[2023-05-24] MEDS: METRONIDAZOLE 500mg IVPB 500 MG/100 ML BAG IV SCH ×3 (01:29→18:54)
[2023-05-24 03:41] LABS: Absolute Lymphocytes (CBC) 1.4 K/uL (0.7-4.9); Hematocrit 32.8 % (36.0-45.0); Lymphocytes % 10.1 % (15.3-44.8); MCV 81.8 fL (80-100); MPV 6.7 fL (7.6-11.3)
[2023-05-24 03:59] LABS: Potassium 4.2 mEq/L (3.5-5.1)
--- NOTE | 2023-05-24 06:50 | P.PN ---
Date of Service: 05/24/23 Subjective: feeling better today no new / worsening problems ~4-5 loose/soft BM yesterday, reports small amounts - "not diarrhea" +flatus; minimal abdominal pain JOSE LUIS drain removed yesterday afebrile ROS: 10 point ROS as noted above, otherwise negative Physical Exam: GEN: Alert, oriented, NAD HEENT: Normal conjunctiva, sclera anicteric CV: Regular rate and rhythm, no edema Pulm: Nonlabored respirations on room air ABD: Soft, nontender, Dressing in place c/d/i, abd binder Neuro: Normal speech, normal affect vitals reviewed Problem List: Sepsis secondary to Acute appendicitis-ruptured, now s/p lap appendectory (05/17) CT abdomen (05/23): fluid collection in the ileocolic mesentery. wound culture: Streptococcus Anginosus Grp General surgery consulted s/p lap appendectomy for ruptured appendix (05/17) on IV Flagyl (05/17-) merrem (05/20-) will change merrem to oral levaquin; avoiding penicillins given reported allergy Afebrile, +leukocytosis improving JOSE LUIS drain removed 05/[address] abdomen (05/23): fluid collection in the ileocolic mesentery. Dr. Laughlin recommends no further intervention, continue antibiotics PRN pain medication She is tolerating diet Activity as tolerated Clinically improving Code: Full Dispo: Home ~1 day Pending further improvement / tolerating PO
[2023-05-24] MEDS ORDERED: Meropenem 1000 MG/VIAL IV ONE (08:32)
[2023-05-24] MEDS ORDERED: NA CHLORIDE 0.9% 100 ML ONE (08:34)
[2023-05-24] MEDS: FLUTICASONE 50MCG NASAL SPRAY NAS SCH ×2 (09:03→21:00)
[2023-05-24 10:43] VITALS: O2SAT 97
[2023-05-24] MEDS ORDERED: levoFLOXacin 750 MG TAB PO ONE (13:11)
--- NOTE | 2023-05-24 14:41 | P.PN ---
Date of Service: 05/24/23 S: Patient feels well today, has up ambulating, says she is eating a little bit better. Also having some bowel movements. Her sisters are here and she is in good company. O: Vital signs remained stable. White cell count coming down. Surgical incision is clean, drain site [drain was removed yesterday] is clean, no drainage. Abdomen itself is soft, minimal tenderness or discomfort. Wearing abdominal binder. A: Clinically the patient looks well. Drain was removed yesterday. No sequelae. P: From a surgical point of view, the patient is stable. I feel she may be discharged. Antibiotics this point are optional, as the area seen on CT scan does not have classical signs of abscess, and this may represent just a fluid collection. This is the area where the inflammatory process was, and some blood/serous fluid would be expected to be in that area. I would also assume the white cell count will be elevated, and the patient's clinical presentation would be different. I will recommended Dr. Samuels, that the patient from a surgical standpoint may be discharged when he is agreed to it. She will follow-up in my office on /Tuesday, she is to call for an appointment. In the interim time. She does not require any more pain medicine, I encouraged her to eat more particularly protein. She will ambulate at home, continue with her incentive spirometry. We discussed wound care. Her sisters are here and able to provide support for her at home. Home health care was declined.
[2023-05-24] MEDS: levoFLOXacin 750 MG TAB PO SCH (15:10)
[2023-05-24] MEDS ORDERED: CEFUROXIME 250 MG TAB PO SCH (21:00)
[2023-05-24] MEDS: ENSURE ENLIVE 237 ML CAN PO SCH (22:23)
[2023-05-25] MEDS: METRONIDAZOLE 500mg IVPB 500 MG/100 ML BAG IV SCH ×2 (01:08→09:06)
[2023-05-25 03:15] LABS: Hematocrit 34.9 % (36.0-45.0); MCV 81.5 fL (80-100); MPV 6.5 fL (7.6-11.3); RBC Red Blood Cell Count 4.29 M/uL (3.86-4.86)
[2023-05-25 03:46] LABS: Potassium 4.7 mEq/L (3.5-5.1)
--- NOTE | 2023-05-25 08:45 | P.DS ---
Admission Date: 05/17/23 Discharge Date: 05/25/23 Disposition: ROUTINE DISCHARGE Discharge Condition: GOOD Consultations: General Surgery - Dr. Laughlin Brief History of Present Illness: 73 yo F, PMH: no known past medical history Patient who presents with complaint of right lower quadrant pain onset 1 and half weeks ago. Patient rated pain as 4/10. Patient described pain as dull in quality. Patient reported associated signs and symptoms of fever, headache and chills. Patient denies any other signs and symptoms. Symptoms are aggravated or relieved by nothing. Patient decided to present to the hospital due to worsening symptoms. Hospital Course: Problem List: Sepsis secondary to Acute appendicitis-ruptured, now s/p appendectomy (05/17) Patient presented with right lower quadrant pain and CT abdomen/pelvis is concerning for appendicitis with possible abscess formation. General surgery, Dr. Laughlin, was consulted and subsequently took the patient to the OR for appendectomy, abscess drainage, and JOSE LUIS drain placement. Postoperatively, patient continued to improve but has slow resolution of her leukocytosis. She remained afebrile and symptoms improved, but due to persistent leukocytosis/slow improvement her antibiotics were broadened out to meropenem and she under went repeat CT abdomen/pelvis. Repeat imaging noted a small fluid collection which could be postsurgical findings versus abscess. Dr. Laughlin reviewed the imaging and discussed with radiologist, and felt this was not an abscess. Patient was otherwise ambulating, breathing comfortably, did not require pain medication for over 48 hours, with no difficulty urinating or having bowel movements. She was deemed stable for discharge home. Discharged with 5 more days of antibioticsLevaquin/Flagyl, which will complete a total 12-day course. Medications: Levofloxacin and Metronidazole for 5 more days. Follow up: PCP within [address] Laughlin later this week as discussed. Of note, CT abdomen/pelvis noted incidental findings of several small low- density liver lesions, felt to probably be benign, but recommend hepatic protocol MRI in the near future. Physical Exam: GEN: Alert, oriented, NAD HEENT: Normal conjunctiva, sclera anicteric CV: Regular rate and rhythm, no edema Pulm: Nonlabored respirations on room air ABD: Soft, nontender, midline surgical laparotomy incision healing well, no evidence of infection, avis in place, small JOSE LUIS drain wound with no evidence of infection Neuro: Normal speech, normal affect Vital Signs/Physical Exam: Temp Pulse Resp BP Pulse Ox 98.1 F 95 H 16 142/69 H 87 L 05/25/23 04:00 05/25/23 04:00 05/25/23 04:00 05/25/23 04:00 05/25/23 04:00 Laboratory Data at Discharge: WBC 11.60 thou/uL (4.3-10.9) H 05/25/23 02:35 Hgb 11.6 g/dL (12.0-15.0) L 05/25/23 02:35 Hct 34.9 % (36.0-45.0) L 05/25/23 02:35 Plt Count 572 thou/uL (152-406) H 05/25/23 02:35 Sodium 132 mEq/L (136-145) L D 05/25/23 02:35 Potassium 4.7 mEq/L (3.5-5.1) 05/25/23 02:35 BUN 13 mg/dL (7-18) 05/25/23 02:35 Creatinine 0.75 mg/dL (0.55-1.02) 05/25/23 02:35 Glucose 113 mg/dL (74-106) H 05/25/23 02:35 Phosphorus 3.8 mg/dL (2.5-4.9) 05/18/23 04:26 Magnesium 2.4 mg/dL (1.6-2.4) 05/18/23 04:26 Total Bilirubin 0.4 mg/dL (0.2-1.0) 05/17/23 09:45 AST 28 U/L (15-37) 05/17/23 09:45 ALT 44 U/L (13-56) 05/17/23 09:45 Alkaline Phosphatase 106 U/L (45-117) 05/17/23 09:45 Triglycerides 54 mg/dL (<150) 05/18/23 04:26 Cholesterol 144 mg/dL (<200) 05/18/23 04:26 HDL Cholesterol 38 mg/dL (40-60) L 05/18/23 04:26 Cholesterol/HDL Ratio 3.79 05/18/23 04:26 Lipase 32 U/L (13-75) 05/17/23 09:45 Home Medications: Magnesium Oxide [Magnesium] 200 mg PO DAILY 05/17/23 Multivitamin 1 each PO DAILY 05/17/23 [place]-3/Dha/Epa/Fish Oil [Fish Oil 500 mg Softgel] 1 each PO BID 05/17/23 Metronidazole 500 mg PO Q8H 5 Days #15 tab 05/25/23 levoFLOXacin [Levaquin*] 750 mg PO DAILY 5 Days #5 tab 05/25/23 New Medications: levoFLOXacin [Levaquin*] 750 mg PO DAILY 5 Days #5 tab Metronidazole 500 mg PO Q8H 5 Days #15 tab Physician Discharge Instructions: Patient presented with right lower quadrant pain and CT abdomen/pelvis is concerning for appendicitis with possible abscess formation. General surgery, Dr. Laughlin, was consulted and subsequently took the patient to the OR for appendectomy, abscess drainage, and JOSE LUIS drain placement. Postoperatively, patient continued to improve but has slow resolution of her leukocytosis. She remained afebrile and symptoms improved, but due to persistent leukocytosis/slow improvement her antibiotics were broadened out to meropenem and she under went repeat CT abdomen/pelvis. Repeat imaging noted a small fluid collection which could be postsurgical findings versus abscess. Dr. Laughlin reviewed the imaging and discussed with radiologist, and felt this was not an abscess. Patient was otherwise ambulating, breathing comfortably, did not require pain medication for over 48 hours, with no difficulty urinating or having bowel movements. She was deemed stable for discharge home. Discharged with 5 more days of antibioticsLevaquin/Flagyl, which will complete a total 12-day course. Medications: Levofloxacin and Metronidazole for 5 more days. Follow up: PCP within [address] Laughlin later this week as discussed. Of note, CT abdomen/pelvis noted incidental findings of several small low- density liver lesions, felt to probably be benign, but recommend hepatic protocol MRI in the near future. Patient may also benefit from a colonoscopy as patient hasn't had one done in ~10-15 years. Followup: Saul Cottrell MD [Primary Care Provider] - Time spent managing pt's care (in minutes): 45
[2023-05-25] MEDS: ENSURE ENLIVE 237 ML CAN PO SCH (09:00)
[2023-05-25] MEDS: FLUTICASONE 50MCG NASAL SPRAY NAS SCH (09:05)
[2023-05-25] MEDS: levoFLOXacin 750 MG TAB PO SCH (09:05)
[2023-05-25 09:10] VITALS: BP 151/80; TEMP 99.3
== END 2023-05-25 15:00 | disposition home or self-care (01) | DRG 853 ==
LOC: ER 09:10 → ERHOLD 14:18 → 3RD-ICU 16:17 → 2ND 05-18 22:31
PROVIDERS: ADMIT Internal Medicine; ATTEND Hospitalist
PROC: 0DTJ0ZZ Resection of Appendix, Open Approach (ICD-10-PCS; principal; 2023-05-17 14:00)
DX: A41.89 Other specified sepsis (principal); K35.33 Acute appendicitis with perforation, localized peritonitis, and gangrene, with abscess; N39.0 Urinary tract infection, site not specified; N18.2 Chronic kidney disease, stage 2 (mild); B95.4 Other streptococcus as the cause of diseases classified elsewhere; R51.9 Headache, unspecified; Z88.0 Allergy status to penicillin; Z88.1 Allergy status to other antibiotic agents
CPT/HCPCS: 36415; 74177; 80048; 80053; 80061; 81001; 83690; 83735; 84100; 84439; 84443; 85025; 87070; 87075; 87205; 88304; 96374; 96375; 97161; 99285; J0744; J1100; J1170; J2001; J2185; J2250; J2405; J2704; J2710; J3010; J7030; J7120; Q9967